=== PATIENT | female | born 1985 | race Two or more races ===

== ENCOUNTER 2018-11-22 16:40 | Emergency (ER) | payer MEDICAID ==
[~2018-11-22] VITALS: Ht 160 cm; Wt 72.6 kg
[2018-11-22 16:48] VITALS: BP 115/77
== END 2018-11-22 18:28 | disposition home or self-care (01) ==
LOC: ER 16:51
DX: S90.02XA Contusion of left ankle, initial encounter (principal); R42 Dizziness and giddiness; W20.8XXA Other cause of strike by thrown, projected or falling object, initial encounter; Y93.89 Activity, other specified; Y92.39 Other specified sports and athletic area as the place of occurrence of the external cause; Y99.8 Other external cause status
CPT/HCPCS: 73610

== ENCOUNTER 2019-03-09 15:46 | Emergency (ER) | payer MEDICAID ==
[~2019-03-09] VITALS: Ht 160 cm; Wt 72.6 kg
[2019-03-09 17:11] LABS: Urine Bacteria MANY /hpf (None Seen); Urine Blood Negative /uL (Negative); Urine Mucus FEW (None Seen); Urine Specific Gravity 1.023 (1.001-1.035); Urine WBC 13 /hpf (0 - 5)
[2019-03-09 19:05] VITALS: BP 112/67
== END 2019-03-09 20:19 | disposition home or self-care (01) ==
LOC: ER 15:50
DX: N39.0 Urinary tract infection, site not specified (principal)
CPT/HCPCS: 81001; 81025

== ENCOUNTER 2021-10-19 08:13 | Emergency (ER) | payer MEDICAID ==
[~2021-10-19] VITALS: Ht 160 cm; Wt 105.7 kg
[2021-10-19 08:13] VITALS: BP 116/76
[2021-10-19] MEDS ORDERED: ACET-1158 PO (08:36)
[2021-10-19] MEDS ORDERED: ONDA-144 PO (08:36)
[2021-10-19] MEDS ORDERED: AMOX-277 PO (08:36)
[2021-10-19] MEDS ORDERED: ONDANSETRON ODT 4 MG TAB PO ONE (08:45)
== END 2021-10-19 08:49 | disposition home or self-care (01) ==
LOC: ER 08:13
DX: J02.9 Acute pharyngitis, unspecified (principal)
CPT/HCPCS: 99283; Q0162